=== PATIENT | female | born 1950 | race Caucasian/White ===

== ENCOUNTER → 2018-09-28 | Outpatient (CLI) | payer MEDICARE | END | disposition home or self-care (01) | LOC: LAB EV 09:03 → LAB SHORT 09:03 | DX: N39.0 Urinary tract infection, site not specified (principal) | CPT/HCPCS: 87077; 87086; 87186 ==

== ENCOUNTER → 2020-11-05 | Outpatient (CLI) | payer MEDICARE | LOC: LAB SHORT 09:08 → LAB EV 09:08 | DX: R35.0 Frequency of micturition (principal) | CPT/HCPCS: 87086 ==

== ENCOUNTER → 2021-10-06 | Outpatient (CLI) | payer MEDICARE | END | disposition home or self-care (01) | LOC: LAB SHORT 12:11 → LAB 12:11 | DX: N39.0 Urinary tract infection, site not specified (principal) | CPT/HCPCS: 87077; 87086; 87186 ==

== ENCOUNTER → 2023-06-26 | Outpatient (CLI) | payer MEDICARE | LOC: LAB 09:50 → LAB SHORT 09:50 | DX: N39.0 Urinary tract infection, site not specified (principal) | CPT/HCPCS: 87077; 87086; 87186 ==